=== PATIENT | female | born 2000 | race Caucasian/White ===

== ENCOUNTER 2020-05-29 10:06 | Emergency (ER) | payer BC ==
[~2020-05-29] VITALS: Ht 160 cm; Wt 47.7 kg
[2020-05-29 10:12] VITALS: TEMP 98.3
[2020-05-29 11:18] VITALS: BP 125/79; PULSE 113
== END 2020-05-29 11:27 | disposition home or self-care (01) ==
LOC: COL.ER 10:06
DX: S01.112A Laceration without foreign body of left eyelid and periocular area, initial encounter (principal); W01.110A Fall on same level from slipping, tripping and stumbling with subsequent striking against sharp glass, initial encounter

== ENCOUNTER → 2020-06-03 | Outpatient (CLI) | payer BC ==
[2020-06-03 08:27] VITALS: BP 122/77; PULSE 101; TEMP 97.7
== END ==
LOC: COL.ER 08:21
DX: Z48.02 Encounter for removal of sutures (principal)